=== PATIENT | female | born 1990 | race Caucasian/White ===

== ENCOUNTER → 2016-08-31 | Outpatient (CLI) | payer OTHER ==
[~2016-08-31] MED LIST: [UNRECOGNIZED DRUG - OTHER]
--- NOTE | 2016-09-01 13:48 | Diagnostic Imaging Report ---
Thyroid scan and uptake Technique: After the oral administration of 192 ?Ci of I-123 capsule, 4 hour and 24-hour uptake is measured and plantar images over the thyroid gland obtained. Indication: Hyperthyroidism FINDINGS: Thyroid uptake at 4 hours is 8 %, and the at 24 hours is 25.8 %. Planar images demonstrate no evidence of a cold or hot nodule. IMPRESSION: Normal thyroid uptake and scan. Dictated by: Dictated on workstation # [id number]
== END ==
LOC: CARD 11:52
PROVIDERS: ATTEND Internal Medicine
DX: E05.90 Thyrotoxicosis, unspecified without thyrotoxic crisis or storm (principal)
CPT/HCPCS: 78014

== ENCOUNTER → 2018-11-03 | Outpatient (CLI) | payer BC, OTHER ==
--- NOTE | 2018-11-03 13:40 | Diagnostic Imaging Report ---
PROCEDURE: CT sinuses without contrast TECHNIQUE: Multiple contiguous axial images were obtained through the sinuses without the use of intravenous contrast. Coronal and sagittal reformations were then performed. Auto Exposure Controls were utilized during the CT exam to meet ALARA standards for radiation dose reduction. INDICATION: Chronic sinus pressure and fatigue. FINDINGS: There are polyps or retention cysts within the maxillary antrum bilaterally. Largest is along the floor of the left maxillary sinus measuring approximately 1.2 cm. There is deviation of nasal septum to the right. There appears to be considerable thickening of the mucosa along the inferior nasal turbinates bilaterally. The middle nasal turbinates appear normal. The ostiomeatal complex appears normal. There is deviation of nasal septum to the right. There is mild mucosal thickening of the anterior ethmoid air cell on the right. Sphenoid air cells are clear. The frontal sinuses are clear. There are no destructive bony lesions. IMPRESSION: 1. Bilateral polyps or retention cysts within the maxillary sinus, largest is on the left. 2. Considerable mucosal thickening of the inferior nasal turbinates bilaterally. There is also deviation of nasal septum to the right. Dictated by: Dictated on workstation # [id number]
== END ==
LOC: RAD 13:05
PROVIDERS: ATTEND Internal Medicine
DX: J34.2 Deviated nasal septum (principal); R53.83 Other fatigue
CPT/HCPCS: 70486

== ENCOUNTER → 2020-07-15 | Outpatient (CLI) | payer BC ==
--- NOTE | 2020-07-15 11:36 | Diagnostic Imaging Report ---
INDICATION: patient, survey. TECHNIQUE: Multiple real-time grayscale images were obtained over the gravid uterus. COMPARISON: None FINDINGS: A single live intrauterine fetus is seen measuring 20 weeks 5 days by composite measurements. Cervical length is 4.2 cm. The fetus is in breech presentation. Amniotic fluid index is 14.47 cm. Placenta is anterior with no evidence of previa, the distal tip of the cervical os to the tip of the placenta was about 3.5 cm. heart rate is 156 bpm. There is no subchorionic bleed. Maternal adnexa could not be well visualized. The survey showed normal-appearing kidneys and bladder and stomach. Normal-appearing intracranial ventricles are seen. Normal-appearing four-chamber heart view is seen. Normal-appearing three-vessel cord and cord insertion were seen. Views of the spine were unremarkable. Biometrical measurements are as follows: Biparietal 4.87 cm, age 20 weeks 6 days. Head circumference 18.56 cm, age 21 weeks 0 days. Abdominal circumference 15.36 cm, age 20 weeks 4 days. Femur length 3.32 cm, age 20 weeks 3 days. Sonographic estimate age: 20 weeks 5 days. Sonographic estimated date of delivery: 11/27/2020. Estimated Weight: 360 gm (+/- 53 gm). LMP percentile: 51%. heart rate: 156 beats per minute. number: 1 of 1. IMPRESSION: Single live intrauterine fetus measuring 20 weeks 5 days in size as described above. There was no detectable abnormality. Dictated by: Dictated on workstation # [id number]
== END ==
LOC: RAD 10:00
PROVIDERS: ATTEND Obstetrics & Gynecology
DX: Z34.02 Encounter for supervision of normal first pregnancy, second trimester (principal); Z3A.20 20 weeks gestation of pregnancy
CPT/HCPCS: 76805

== ENCOUNTER → 2020-10-30 | Outpatient (CLI) | payer BC ==
[2020-10-30 11:53] LABS: URINE CREATININE FOR RATIO 33 MG/DL (30-125); URINE PROTEIN FOR RATIO ONLY < 6 MG/DL (6-12)
== END ==
LOC: LABNPT 11:31
PROVIDERS: ATTEND Nurse Practitioner Women's Health
DX: R03.0 Elevated blood-pressure reading, without diagnosis of hypertension (principal)
CPT/HCPCS: 82570; 84156

== ENCOUNTER 2020-11-18 18:57 | Inpatient (IN) | payer BC ==
[~2020-11-18] VITALS: Ht 167 cm; Wt 72.6 kg
[2020-11-18] VITALS (7 sets, daily range): BP systolic 133–149; BP diastolic 82–103
[2020-11-18] MEDS ORDERED: TERBUTALINE INJ 1 MG/ML (BRETHINE) AMP SC PRN (20:00)
[2020-11-18] MEDS ORDERED: NS IV 500 ML 500 ML IV ONE (20:00)
[2020-11-18] MEDS ORDERED: NS IV 500 ML 500 ML ONE ×2 (20:19→20:21)
[2020-11-18] MEDS: D5 LR IV SOLUTION 1,000 ML IV SCH (20:20)
[2020-11-18 20:29] LABS: BASOPHILS % (AUTO) 0 % (0-10); EOSINOPHILS # (AUTO) 0.1 10^3/uL (0.0-0.3); EOSINOPHILS % (AUTO) 1 % (0-10); HEMATOCRIT 36 % (35-52); HEMOGLOBIN 12.4 g/dL (11.5-16.0); LYMPHOCYTES # (AUTO) 2.3 10^3/uL (1.0-4.0); LYMPHOCYTES % (AUTO) 22 % (12-44); MEAN CORPUSCULAR HEMOGLOBIN 33 pg (25-34); MEAN CORPUSCULAR HGB CONC 34 g/dL (32-36); MEAN CORPUSCULAR VOLUME 95 fL (80-99); MEAN PLATELET VOLUME 11.2 fL (9.0-12.2); MONOCYTES # (AUTO) 0.6 10^3/uL (0.0-1.0); MONOCYTES % (AUTO) 6 % (0-12); NEUTROPHILS # (AUTO) 7.1 10^3/uL (1.8-7.8); NEUTROPHILS % (AUTO) 70 % (42-75); PLATELET COUNT 231 10^3/uL (130-400); WHITE BLOOD COUNT 10.1 10^3/uL (4.3-11.0)
[2020-11-18] MEDS ORDERED: PNV11TAB5 PO (21:01)
[2020-11-18] MEDS ORDERED: CATHETER FLUSH 10 ML SYR IV SCH (22:00)
[2020-11-19] VITALS (78 sets, daily range): BP systolic 106–176; BP diastolic 62–102
[2020-11-19] MEDS: D5 LR IV SOLUTION 1,000 ML IV SCH ×3 (03:19→18:28)
[2020-11-19] MEDS ORDERED: OXYTOCIN PRE-MIX DRIP 500 ML IV SCH (07:30)
--- NOTE | 2020-11-19 08:57 | History & Physical-OB ---
OB - Chief Complaint & HPI Date/Time Date of Admission: Date of Admission: Nov 18, 2020 at 6:57 pm Date seen by a Provider: Nov 19, 2020 Time Seen by a Provider: 08:54 Chief Complaint/History OB-Reason for Admission/Chief: Induction of Labor Hx : 2 Hx Para: 0 Expected Date of Delivery: Nov 29, 2020 Gestational Age in Weeks: 38 Gestational Age in Days: 3 Admission Nurse Assessment Rev: Yes History of Labs O pos Antibody neg RI RPR NR HBsAg NR HIV NR GC neg GBS neg Allergies and Home Medications Allergies Coded Allergies: No Known Drug Allergies (Unverified , 04/29/15) Patient Home Medication List Home Medication List Reviewed: Yes OB - History Hx of Present Care: Yes Ultrasounds: Normal mid trimester US Obstetrical Complications: None Medical Complications: None Delivery History Hx Blood Disorders: No Patient Past Medical History n/a Immunizations Hepatitis B: Yes OB - Admission Exam Physical Exam Vitals: Vital Signs 11/18/20 11/19/20 11/19/20 11/19/20 20:50 02:00 07:00 07:30 Temp 36.5 Pulse 63 Resp 20 B/P (MAP) 141/83 (102) Pulse Ox 99 O2 Delivery Room Air HEENT: NCAT Heart: Rhythm Normal Lungs: Clear Abdomen: Gravid Extremities: Normal Reflexes: Normal Cervical Dilatation: 2cm Effacement: 75% Station: -1 Membranes: Intact Heart Rate: 130's Accelerations: Accelerations Present Decelerations: No Decelerations Knock Out Hand Variability: Average (6-25) Contractions on Admission: 6-10 Minutes Apart Intensity: Mild Loving Scoring Tool (Modified) Dilation (cm): 1-2cm (1) Effacement (%): 80-100% (3) Descent/Station: -1,0 (2) Cervix Consistency: Soft (2) Cervix Position: Middle/Mid-Position (1) Subtract 1 point for: Nulliparity (-1) Loving Score: 8 Labs Laboratory Tests Test 11/18/20 20:15 Range/Units White Blood Count 10.1 4.3-11.0 10^3/uL Red Blood Count 3.82 3.80-5.11 10^6/uL Hemoglobin 12.4 11.5-16.0 g/dL Hematocrit 36 35-52 % Mean Corpuscular Volume 95 80-99 fL Mean Corpuscular Hemoglobin 33 25-34 pg Mean Corpuscular Hemoglobin Concent 34 32-36 g/dL Red Cell Distribution Width 13.1 10.0-14.5 % Platelet Count 231 130-400 10^3/uL Mean Platelet Volume 11.2 9.0-12.2 fL Immature Granulocyte % (Auto) 1 % Neutrophils (%) (Auto) 70 42-75 % Lymphocytes (%) (Auto) 22 12-44 % Monocytes (%) (Auto) 6 0-12 % Eosinophils (%) (Auto) 1 0-10 % Basophils (%) (Auto) 0 0-10 % Neutrophils # (Auto) 7.1 1.8-7.8 10^3/uL Lymphocytes # (Auto) 2.3 1.0-4.0 10^3/uL Monocytes # (Auto) 0.6 0.0-1.0 10^3/uL Eosinophils # (Auto) 0.1 0.0-0.3 10^3/uL Basophils # (Auto) 0.0 0.0-0.1 10^3/uL Immature Granulocyte # (Auto) 0.1 0.0-0.1 10^3/uL OB - Assessment/Plan/Diagnosis Assessment Assessment: induction of labor Admission Dx 30 yo @ 38.4 Gestational HTN GBS neg Admission Status: Inpatient Order (span 2 midnights) Reason for Inpatient Admission: IOL due to GHTN at 38 weeks Plan Plan: Induction Induction Method: per Misoprostol Protocol FEROZ KEITH DO Nov 19, 2020 8:57 am
[2020-11-19] MEDS ORDERED: fentaNYL 2 mcg/ml BUPIVA 0.125 100 ML ONE (10:35)
[2020-11-19] MEDS ORDERED: BUPIVACAINE 0.25% 30 ML (SENSORCAINE) VIAL ONE (10:41)
[2020-11-19] MEDS ORDERED: fentaNYL INJ 100 MCG/2 ML AMP ONE (10:41)
[2020-11-19] MEDS ORDERED: CATHETER FLUSH 10 ML SYR IV PRN (10:45)
[2020-11-19] MEDS ORDERED: LACTATED RINGERS 1,000 ML IV ONE (10:45)
[2020-11-19] MEDS ORDERED: NALOXONE 0.4 MG/ML 1 ML (NARCAN) VIAL IV PRN ×2 (10:45→23:45)
[2020-11-19] MEDS: fentaNYL 2 mcg/ml BUPIVA 0.125 100 ML IV SCH ×2 (10:47→18:25)
[2020-11-19] MEDS ORDERED: LIDOCAINE/EPI 2% 1:200,00 (XYLOCAINE) 20 ML VIAL ONE (19:17)
[2020-11-19] MEDS: OXYTOCIN PRE-MIX DRIP 500 ML IV SCH (23:42)
--- NOTE | 2020-11-19 23:44 | OB Labor & Delivery Record ---
L&D History Date of Service Date of Service: Nov 19, 2020 History Expected Date of Delivery: Nov 29, 2020 Gestational Age in Weeks: 38 Hx : 2 Hx Para: 0 Complications Events: Induced HTN, Routine care Operative Indications (Cesarea: N/A-Vaginal Delivery Intrapartal Events: None L&D Stage1 Stage One Onset of Labor - Date: Nov 19, 2020 Monitors and Tracing Monitor Mode: External Heart Rate: 150 Monitor Accelerations: Uniform Monitor Decelerations: Early Station: -1 Care Home Variability: Average (6-10) Short Term Variability: Present Presentation: Vertex Vital Signs VS - Last 72 Hours, by Label 11/18/20 11/18/20 11/18/20 11/18/20 19:20 19:35 19:55 20:50 Temp 36.7 36.7 Pulse 80 74 75 80 Resp 18 18 18 18 B/P (MAP) 148/103 (118) 149/97 (114) 135/92 (106) Pulse Ox 99 O2 Delivery Room Air 11/18/20 11/18/20 11/18/20 11/19/20 21:00 21:55 23:00 00:00 Temp 36.7 Pulse 70 70 65 65 Resp 18 18 18 18 B/P (MAP) 147/91 (109) 133/82 (99) 149/94 (112) 131/83 (99) O2 Delivery Room Air Room Air Room Air 11/19/20 11/19/20 11/19/20 11/19/20 01:00 02:00 03:00 04:00 Temp 36.5 Pulse 63 62 65 60 Resp 18 20 18 18 B/P (MAP) 138/84 (102) 134/83 (100) 115/67 (83) 127/82 (97) O2 Delivery Room Air Room Air Room Air 11/19/20 11/19/20 11/19/20 11/19/20 05:00 06:00 07:00 07:30 Pulse 61 64 63 Resp 18 20 20 B/P (MAP) 132/80 (97) 125/87 (100) 141/83 (102) O2 Delivery Room Air Room Air Room Air Room Air 11/19/20 11/19/20 11/19/20 11/19/20 07:45 08:00 08:15 08:30 Temp 37.2 Pulse 70 66 71 72 Resp 18 18 18 18 B/P (MAP) 155/93 (113) 143/90 (107) 132/88 (103) 149/67 (94) O2 Delivery Room Air Room Air Room Air Room Air 11/19/20 11/19/20 11/19/20 11/19/20 08:45 09:00 09:15 09:30 Pulse 58 70 65 Resp 18 18 18 B/P (MAP) 127/72 (90) 106/66 (79) 115/75 (88) O2 Delivery Room Air Room Air Room Air Room Air 11/19/20 11/19/20 11/19/20 11/19/20 09:45 10:00 10:15 10:30 Temp 36.8 Pulse 68 64 72 64 Resp 18 18 18 18 B/P (MAP) 134/80 (98) 133/80 (97) 138/87 (104) 159/97 (117) O2 Delivery Room Air Room Air Room Air Room Air 11/19/20 11/19/20 11/19/20 11/19/20 10:45 11:00 11:07 11:10 Pulse 80 72 76 87 Resp 18 18 B/P (MAP) 176/99 (124) 168/96 (120) 166/83 (110) 159/88 (111) Pulse Ox 100 100 100 O2 Delivery Room Air Room Air Room Air Room Air 11/19/20 11/19/20 11/19/20 11/19/20 11:13 11:15 11:17 11:20 Pulse 78 98 97 87 Resp 18 B/P (MAP) 129/80 (96) 133/90 (104) 131/80 (97) 134/80 (98) Pulse Ox 100 99 100 98 O2 Delivery Room Air Room Air Room Air Room Air 11/19/20 11/19/20 11/19/20 11/19/20 11:23 11:26 11:30 11:35 Pulse 78 104 95 96 Resp 18 B/P (MAP) 132/78 (96) 128/67 (87) 116/69 (85) 126/70 (88) Pulse Ox 98 98 97 97 O2 Delivery Room Air Room Air Room Air Room Air 11/19/20 11/19/20 11/19/20 11/19/20 11:40 11:45 11:50 11:55 Pulse 91 91 83 76 B/P (MAP) 117/72 (87) 135/68 (90) 120/62 (81) 120/67 (84) Pulse Ox 99 98 97 98 O2 Delivery Room Air Room Air Room Air Room Air 11/19/20 11/19/20 11/19/20 11/19/20 12:00 12:15 12:30 12:45 Temp 36.7 Pulse 81 81 74 72 B/P (MAP) 130/87 (101) 125/80 (95) 115/65 (82) Pulse Ox 100 100 100 100 O2 Delivery Room Air Room Air Room Air Room Air 11/19/20 11/19/20 11/19/20 11/19/20 13:00 13:15 13:30 13:45 Pulse 76 78 74 74 Resp 18 18 18 18 B/P (MAP) 115/62 (79) 108/67 (81) 117/70 (86) 117/70 (86) Pulse Ox 100 O2 Delivery Room Air Room Air Room Air Room Air 11/19/20 11/19/20 11/19/20 11/19/20 14:00 14:15 14:30 14:45 Pulse 74 76 75 77 Resp 18 18 18 18 B/P (MAP) 130/74 (92) 121/76 (91) 133/86 (102) 134/85 (101) O2 Delivery Room Air Room Air Room Air Room Air 11/19/20 11/19/20 11/19/20 11/19/20 15:00 15:15 15:30 15:45 Temp 36.5 Pulse 75 71 71 69 Resp 18 18 18 18 B/P (MAP) 141/85 (103) 137/87 (104) 135/83 (100) 136/87 (103) O2 Delivery Room Air Room Air Room Air Room Air 11/19/20 11/19/20 11/19/20 11/19/20 16:00 16:15 16:30 16:45 Pulse 73 82 81 79 Resp 18 18 18 18 B/P (MAP) 136/91 (106) 140/88 (105) 149/65 (93) 125/76 (92) O2 Delivery Room Air Room Air Room Air Room Air 11/19/20 11/19/20 11/19/20 11/19/20 17:00 17:15 17:30 17:45 Pulse 75 78 77 76 Resp 18 18 18 18 B/P (MAP) 138/80 (99) 134/77 (96) 148/86 (106) 143/91 (108) O2 Delivery Room Air Room Air Room Air Room Air 11/19/20 11/19/20 11/19/20 11/19/20 18:00 18:15 18:30 18:45 Pulse 85 75 75 76 Resp 18 18 18 18 B/P (MAP) 142/95 (111) 143/83 (103) 152/93 (112) 142/88 (106) O2 Delivery Room Air Room Air Room Air Room Air 11/19/20 11/19/20 11/19/20 11/19/20 19:00 19:15 19:30 19:45 Pulse 81 78 Resp 18 18 18 18 B/P (MAP) 143/91 (108) 136/89 (105) O2 Delivery Room Air Room Air Room Air Room Air 11/19/20 11/19/20 20:00 20:15 Pulse 105 Resp 18 18 B/P (MAP) 141/96 (111) O2 Delivery Room Air Room Air Rupture of Membranes Spontaneous Ruture of Membrane: No Amniotic Membrane Rupture Time: 0810 Amniotic Membrane Fluid Desc.: Clear Vaginal Bleeding Description: Normal Show Induction/Anesthesia Epidural Cath Placement - Time: 1057 Progress/Notes Patient was admitted for IOL yesterday evening. She was started on PO misoprostol overnight receiving two doses. She was evaluated this morning and AROM was performed and pitocin augmentation was started. She received an epidural and progressed to complete and + 2 station over the next 14 hrs. L&D Stage2 Stage Two Stage II Date: Nov 19, 2020 Monitors and Tracing Monitor Mode: External Heart Rate: 150 Monitor Accelerations: Uniform Monitor Decelerations: Variable Care Home Variability: Average (6-10) Short Term Variability: Present Position: Right Occiput Anterior Presentation: Vertex Cord Descript/Complications Cord Vessel Description: 3 Vessels Delivery Type Delivery Method: Spontaneous Vaginal Anterior Shoulder: Left Episiotomy/Perineal Laceration Laceraction(s)/Extensions: Yes Episiotomy Description: Right Mediolateral Degree (describe repair) RML repaired using 3-0 and 2-0 vicryl suture in usual fashion. Condition of Infant Delivery 1 minute Comment: 8 5 minute Comment: 9 Notes Live male weight 7lbs 8 oz Condition of Infant Condition of : Living Exam: No Observed Abnormalities Resuscitation Resuscitation: N/A - Spontaneous Resp L&D Stage3 Stage Three Stage III Date: Nov 19, 2020 Pictocin Pitocin Administration mu/min: 10 Pitocin ml/hr: 10 Pitocin Administration Comment: Wide open 30 mu after delivery of placenta Placenta Delivery Placenta Delivery: Spontaneous Delivery Summary Summary Estimated blood loss (mL): 300 Attending at delivery: Feroz Keith DO Condition of Delivery Examined: Cervix Examined, Uterus Explored Post Hemorrhage: No Condition of Mother stable Condition of (s) stable FEROZ KEITH DO Nov 19, 2020 23:44
[2020-11-19] MEDS ORDERED: TETANUS,DIPTH,PERTUSS P/F (BOOSTRIX) 0.5 ML VIAL IM ONE (23:45)
[2020-11-19] MEDS ORDERED: WITCH HAZEL(TUCKS) 40 EA JAR TOP PRN (23:45)
[2020-11-19] MEDS ORDERED: DIBUCAINE 1% OINTMENT 30 GM TUBE TOP PRN (23:45)
[2020-11-19] MEDS ORDERED: MEASLES,MUMPS,RUBELLA 1 EA INJ SQ ONE (23:45)
[2020-11-19] MEDS ORDERED: BENZOCAINE/MENTHOL (DERMOPLAST) 56 ML CAN TP PRN (23:45)
[2020-11-20] VITALS (11 sets, daily range): BP systolic 134–164; BP diastolic 74–94
[2020-11-20] MEDS: OXYTOCIN PRE-MIX DRIP 500 ML IV SCH (03:35)
[2020-11-20] MEDS: IBUPROFEN 600 MG (MOTRIN) TAB PO SCH ×4 (03:42→22:09)
[2020-11-20] MEDS: HYDROcodone/APAP 5 MG/325 MG (LORTAB) TAB PO PRN ×2 (04:50→15:14)
[2020-11-20] MEDS ORDERED: CATHETER FLUSH 10 ML SYR IV SCH (06:00)
[2020-11-20 06:10] LABS: BASOPHILS % (AUTO) 0 % (0-10); EOSINOPHILS % (AUTO) 0 % (0-10); HEMATOCRIT 34 % (35-52); HEMOGLOBIN 11.7 g/dL (11.5-16.0); LYMPHOCYTES # (AUTO) 1.4 10^3/uL (1.0-4.0); LYMPHOCYTES % (AUTO) 6 % (12-44); MEAN CORPUSCULAR HEMOGLOBIN 32 pg (25-34); MEAN CORPUSCULAR HGB CONC 34 g/dL (32-36); MEAN CORPUSCULAR VOLUME 95 fL (80-99); MEAN PLATELET VOLUME 11.1 fL (9.0-12.2); MONOCYTES # (AUTO) 1.1 10^3/uL (0.0-1.0); MONOCYTES % (AUTO) 5 % (0-12); NEUTROPHILS # (AUTO) 19.9 10^3/uL (1.8-7.8); NEUTROPHILS % (AUTO) 88 % (42-75); PLATELET COUNT 191 10^3/uL (130-400); WHITE BLOOD COUNT 22.6 10^3/uL (4.3-11.0)
[2020-11-20 06:27] LABS: BAND NEUTROPHILS 5 %; LYMPHOCYTES % (MANUAL) 5 %; MONOCYTES % (MANUAL) 3 %; NEUTROPHILS % (MANUAL) 87 %; RBC MORPH NORMAL
[2020-11-20] MEDS: FERROUS SULF 325 MG (IRON) TAB PO SCH (08:53)
[2020-11-20] MEDS: DOCUSATE SODIUM 100 MG (COLACE) CAP PO SCH ×2 (08:53→22:09)
[2020-11-20] MEDS: PRENATAL VITAMIN 1 EA TAB PO SCH (08:53)
--- NOTE | 2020-11-20 08:53 | Postpartum Progress Note ---
Note Note Day # 1 Subjective: Patient is without complaints. Ambulating, voiding. Tolerating a regular diet without nausea or vomiting. Normal lochia. Pain is well controlled with oral pain medications. Objective: Physical Exam: General - Alert and oriented, no apparent distress Abdomen - Soft, appropriately tender to palpation, non-distended, fundus firm at umbilicus Extremities - no edema, negative Gregory's bilaterally Assessment: PPD 1 NVD Plan: Routine care. Encourage breast feeding. Encourage ambulation. Ferrous sulfate supplementation. Plan for discharge tomorrow Vitals - Labs Vital Signs - I&O Vital Signs Date Time Temp Pulse Resp B/P (MAP) Pulse Ox O2 Delivery O2 Flow Rate FiO2 11/20/20 08:51 36.2 61 18 151/94 (113) 99 Room Air 11/20/20 04:45 73 18 141/84 (103) Room Air 11/20/20 03:41 36.8 77 18 164/94 (117) 97 Room Air 11/20/20 01:30 82 18 150/83 (105) Room Air 11/20/20 01:00 85 18 135/74 (94) Room Air 11/20/20 00:30 37.1 82 18 144/79 (100) Room Air 11/20/20 00:15 37.2 96 18 151/79 (103) Room Air 11/20/20 00:00 37.1 102 18 143/85 (104) Room Air 11/19/20 23:45 37.2 100 18 141/87 (105) Room Air 11/19/20 23:30 37.3 99 18 137/83 (101) Room Air 11/19/20 23:03 18 Room Air 11/19/20 23:00 160 18 141/79 (99) Room Air 11/19/20 22:45 137 18 159/81 (107) Room Air 11/19/20 22:30 139 18 171/88 (115) Room Air 11/19/20 22:15 105 18 156/102 (120) Room Air 11/19/20 22:00 93 18 142/99 (113) Room Air 11/19/20 21:45 93 18 160/97 (118) Room Air 11/19/20 21:30 90 18 161/94 (116) Room Air 11/19/20 21:15 89 18 161/90 (113) Room Air 11/19/20 21:00 102 18 145/94 (111) Room Air 11/19/20 20:45 93 18 145/93 (110) Room Air 11/19/20 20:30 36.8 93 18 140/90 (107) Room Air 11/19/20 20:15 105 18 141/96 (111) Room Air 11/19/20 20:00 18 Room Air 11/19/20 19:45 18 Room Air 11/19/20 19:30 18 Room Air 11/19/20 19:15 78 18 136/89 (105) Room Air 11/19/20 19:00 81 18 143/91 (108) Room Air 11/19/20 18:45 76 18 142/88 (106) Room Air 11/19/20 18:30 75 18 152/93 (112) Room Air 11/19/20 18:15 75 18 143/83 (103) Room Air 11/19/20 18:00 85 18 142/95 (111) Room Air 11/19/20 17:45 76 18 143/91 (108) Room Air 11/19/20 17:30 77 18 148/86 (106) Room Air 11/19/20 17:15 78 18 134/77 (96) Room Air 11/19/20 17:00 75 18 138/80 (99) Room Air 11/19/20 16:45 79 18 125/76 (92) Room Air 11/19/20 16:30 81 18 149/65 (93) Room Air 11/19/20 16:15 82 18 140/88 (105) Room Air 11/19/20 16:00 73 18 136/91 (106) Room Air 11/19/20 15:45 36.5 69 18 136/87 (103) Room Air 11/19/20 15:30 71 18 135/83 (100) Room Air 11/19/20 15:15 71 18 137/87 (104) Room Air 11/19/20 15:00 75 18 141/85 (103) Room Air 11/19/20 14:45 77 18 134/85 (101) Room Air 11/19/20 14:30 75 18 133/86 (102) Room Air 11/19/20 14:15 76 18 121/76 (91) Room Air 11/19/20 14:00 74 18 130/74 (92) Room Air 11/19/20 13:45 74 18 117/70 (86) Room Air 11/19/20 13:30 74 18 117/70 (86) Room Air 11/19/20 13:15 78 18 108/67 (81) Room Air 11/19/20 13:00 76 18 115/62 (79) 100 Room Air 11/19/20 12:45 72 115/65 (82) 100 Room Air 11/19/20 12:30 36.7 74 125/80 (95) 100 Room Air 11/19/20 12:15 81 130/87 (101) 100 Room Air 11/19/20 12:00 81 100 Room Air 11/19/20 11:55 76 120/67 (84) 98 Room Air 11/19/20 11:50 83 120/62 (81) 97 Room Air 11/19/20 11:45 91 135/68 (90) 98 Room Air 11/19/20 11:40 91 117/72 (87) 99 Room Air 11/19/20 11:35 96 126/70 (88) 97 Room Air 11/19/20 11:30 95 18 116/69 (85) 97 Room Air 11/19/20 11:26 104 128/67 (87) 98 Room Air 11/19/20 11:23 78 132/78 (96) 98 Room Air 11/19/20 11:20 87 134/80 (98) 98 Room Air 11/19/20 11:17 97 131/80 (97) 100 Room Air 11/19/20 11:15 98 18 133/90 (104) 99 Room Air 11/19/20 11:13 78 129/80 (96) 100 Room Air 11/19/20 11:10 87 159/88 (111) 100 Room Air 11/19/20 11:07 76 166/83 (110) 100 Room Air 11/19/20 11:00 72 18 168/96 (120) 100 Room Air 11/19/20 10:45 80 18 176/99 (124) Room Air 11/19/20 10:30 64 18 159/97 (117) Room Air 11/19/20 10:15 72 18 138/87 (104) Room Air 11/19/20 10:00 64 18 133/80 (97) Room Air 11/19/20 09:45 36.8 68 18 134/80 (98) Room Air 11/19/20 09:30 65 18 115/75 (88) Room Air 11/19/20 09:15 70 18 106/66 (79) Room Air 11/19/20 09:00 58 18 127/72 (90) Room Air I & O 11/20/20 07:00 Intake Total 5000 ml Output Total 2100 ml Balance 2900 ml Labs Laboratory Tests 11/20/20 05:35: White Blood Count 22.6H, Red Blood Count 3.63L, Hemoglobin 11.7, Hematocrit 34L, Mean Corpuscular Volume 95, Mean Corpuscular Hemoglobin 32, Mean Corpuscular Hemoglobin Concent 34, Red Cell Distribution Width 12.9, Platelet Count 191, Mean Platelet Volume 11.1, Immature Granulocyte % (Auto) 1, Neutrophils (%) (Auto) 88H, Lymphocytes (%) (Auto) 6L, Monocytes (%) (Auto) 5, Eosinophils (%) (Auto) 0, Basophils (%) (Auto) 0, Neutrophils # (Auto) 19.9H, Lymphocytes # (Auto) 1.4, Monocytes # (Auto) 1.1H, Eosinophils # (Auto) 0.0, Basophils # (Auto) 0.0, Immature Granulocyte # (Auto) 0.2H, Neutrophils % (Manual) 87, Lymphocytes % (Manual) 5, Monocytes % (Manual) 3, Band Neutrophils 5, Blood Morphology Comment NORMAL FEROZ KEITH DO Nov 20, 2020 8:53 am
[2020-11-20] MEDS ORDERED: ACHD5005 PO (16:15)
[2020-11-20] MEDS ORDERED: BENZ78AE5 TP (16:15)
[2020-11-20] MEDS ORDERED: DCS100C PO (16:15)
[2020-11-20] MEDS ORDERED: DIBU30OI TOP (16:15)
[2020-11-20] MEDS ORDERED: FERR325T24 PO (16:15)
[2020-11-20] MEDS ORDERED: IBUP-844 PO (16:15)
--- NOTE | 2020-11-20 16:16 | Discharge Inst-Women's Service ---
Discharge Inst-Women's Serv Depart Medication/Instructions New, Converted or Re-Newed RX: RX on Chart Final Diagnosis PPD 2 NVD Problems Reviewed?: Yes Consults/Follow Up Additional Follow Up: Yes Orders/Referrals Dr. Keith in 6 weeks Activity Activity: Activity as Tolerated Driving Instructions: No Driving for 1 Week NO SMOKING: NO SMOKING Nothing Inside Vagina: No Douching, No [place], No Tampons Diet Discharge Diet: No Restrictions Symptoms to Report to : Bleeding Excessive, Pain Increased, Fever Over 101 Degrees F, Vaginal Bleeding Increase, Questions/Concerns For Any Problems or Questions: Contact Your Physician FEROZ KEITH DO Nov 20, 2020 4:16 pm
[2020-11-21 00:10] VITALS: BP_SYST 157; BP_SYST 161; BP_DIAS 93; BP_DIAS 97
[2020-11-21] MEDS: IBUPROFEN 600 MG (MOTRIN) TAB PO SCH ×2 (04:13→11:46)
[2020-11-21 05:27] VITALS: BP 157/97
[2020-11-21] MEDS ORDERED: LABETALOL 200 MG (NORMODYNE) TAB PO ONE (06:53)
--- NOTE | 2020-11-21 08:07 | Postpartum Progress Note ---
Note Note Day # 2 Subjective: Patient is without complaints. Ambulating, voiding. Tolerating a regular diet without nausea or vomiting. Normal lochia. Pain is well controlled with oral pain medications. Objective: Physical Exam: General - Alert and oriented, no apparent distress Abdomen - Soft, appropriately tender to palpation, non-distended, fundus firm at umbilicus Extremities - no edema, negative Gregory's bilaterally Assessment: PPD 2 NVD GHTN- labile pressures Plan: Routine care. Encourage breast feeding. Encourage ambulation. Ferrous sulfate supplementation. Started labetalol today, will dc if control demonstrated. Plan for discharge today Vitals - Labs Vital Signs - I&O Vital Signs Date Time Temp Pulse Resp B/P (MAP) Pulse Ox O2 Delivery O2 Flow Rate FiO2 11/21/20 05:27 36.3 90 18 157/97 (117) 99 Room Air 11/21/20 00:10 36.5 96 18 157/97 (117) 98 Room Air 11/20/20 20:00 36.1 89 18 160/89 (112) 99 Room Air 11/20/20 17:55 36.6 76 18 159/89 (112) Room Air 11/20/20 14:00 37.0 80 18 134/78 (96) 97 Room Air 11/20/20 08:51 36.2 61 18 151/94 (113) 99 Room Air FEROZ KEITH DO Nov 21, 2020 08:07
[2020-11-21] MEDS ORDERED: LABE200T7 PO (08:08)
[2020-11-21 08:40] VITALS: BP 126/76
[2020-11-21] MEDS: PRENATAL VITAMIN 1 EA TAB PO SCH (08:48)
[2020-11-21] MEDS: FERROUS SULF 325 MG (IRON) TAB PO SCH (08:48)
[2020-11-21] MEDS: DOCUSATE SODIUM 100 MG (COLACE) CAP PO SCH (08:48)
[2020-11-21] MEDS ORDERED: LABETALOL 200 MG (NORMODYNE) TAB PO SCH (09:00)
[2020-11-21 11:50] VITALS: BP 135/92
[2020-11-21 13:29] VITALS: BP 135/92
== END 2020-11-21 13:56 | disposition home or self-care (01) | DRG 807 ==
LOC: LDRP 18:57
PROVIDERS: ADMIT Obstetrics & Gynecology; ATTEND Obstetrics & Gynecology
PROC: 3E0DXGC Introduction of Other Therapeutic Substance into Mouth and Pharynx, External Approach (ICD-10-PCS; 2020-11-18)
PROC: 10E0XZZ Delivery of Products of Conception, External Approach (ICD-10-PCS; principal; 2020-11-19)
PROC: 0W8NXZZ Division of Female Perineum, External Approach (ICD-10-PCS; 2020-11-19)
DX: O13.4 Gestational [pregnancy-induced] hypertension without significant proteinuria, complicating childbirth (principal); Z37.0 Single live birth; Z3A.38 38 weeks gestation of pregnancy
CPT/HCPCS: 36415; 85007; 85025; 85027; 86850; 86900; 86901